=== PATIENT | male | born 1960 | race American Indian/Alaskan Native ===

== ENCOUNTER 2020-06-21 08:31 | Outpatient (CLI) | payer OTHER ==
--- NOTE | 2020-06-21 09:49 | Cat Scan Report ---
CT ABDOMEN AND PELVIS WITHOUT CONTRAST INDICATION / CLINICAL INFORMATION: MALIGNANT NEOPLASM OF PROSTATE. TECHNIQUE: Axial CT images were obtained through the abdomen and pelvis without IV contrast. All CT scans at this location are performed using CT dose reduction for ALARA by means of automated exposure control. COMPARISON: None available. FINDINGS: LOWER CHEST: No significant abnormality. LIVER: No significant abnormality. GALLBLADDER: No significant abnormality. BILE DUCTS: No significant abnormality. PANCREAS: There is a 2.3 cm hypodensity uncinate process of the pancreas. SPLEEN: No significant abnormality. ADRENALS: No significant abnormality. RIGHT KIDNEY / URETER: There is a 5.7 cm benign-appearing cyst in the right kidney is measures 3 Houn sfield units. LEFT KIDNEY / URETER: No significant abnormality. STOMACH / SMALL BOWEL: No significant abnormality. COLON: No significant abnormality. APPENDIX: No significant abnormality. PERITONEUM: No free fluid. No free air. No fluid collection. LYMPH NODES: No significant adenopathy. AORTA / ARTERIES: No significant abnormality. IVC / VEINS: No significant abnormality. URINARY BLADDER: No significant abnormality. REPRODUCTIVE ORGANS: No significant abnormality. ADDITIONAL FINDINGS: There is a fat-containing paraumbilical hernia. SKELETAL SYSTEM: There is a 6 mm lytic lesion in the inferior pubic ramus on the right. Degenerative changes are noted in the imaged spine. IMPRESSION: 1. There is a 2.3 cm hypodense lesion in the uncinate process of the pancreas which are further evalu ation. MRI of the pancreas with and without contrast is recommended. 2. No adenopathy is seen in the abdomen or pelvis. 3. There is a 6 mm lytic lesion in the right inferior pubic ramus. Signer Name: Julián Hassan MD Signed: 06/21/2020 9:45 AM Workstation Name: [id number]
--- NOTE | 2020-06-21 13:16 | Nuclear Medicine Report ---
NUCLEAR MEDICINE WHOLE BODY BONE IMAGING STUDY. HISTORY: MALIGNANT NEOPLASM OF PROSTATE COMPARISON: No prior bone scans are available for comparison. CT abdomen and pelvis from the same day was review ed. TECHNIQUE: The patient was administered 26.5 mCi of technetium 99m labeled MDP intravenously. FINDINGS: There is bilateral, relatively symmetric articular activity which is most likely degenerative given t he distribution and symmetry. There is asymmetric activity at the medial left clavicle/left sternoclavicular joint. There is normal soft tissue activity in the kidneys and urinary bladder. IMPRESSION: Asymmetric activity at the medial left clavicle/left sternoclavicular joint may be degenerative or po sttraumatic. Metastatic lesion cannot be excluded. Correlation with CT or radiographs is recommended in the absence of history of prior trauma to this region. Signer Name: Nathanael Fallon MD Signed: 06/21/2020 1:12 PM Workstation Name: [id number]
== END 2020-06-21 08:32 | disposition home or self-care (01) ==
LOC: NM 08:31
PROVIDERS: ATTEND Urology
DX: C61 Malignant neoplasm of prostate (principal); N28.1 Cyst of kidney, acquired; K42.9 Umbilical hernia without obstruction or gangrene; M99.85 Other biomechanical lesions of pelvic region
CPT/HCPCS: 74176; 78306; A9503